=== PATIENT | female | born 1950 | race African-American/Black ===

== ENCOUNTER → 2024-08-25 | Day surgery (SDC) | payer OTHER, MEDICAID ==
[~2024-08-25] MED LIST: AMLO5TAB88 PO; LETR2.5T7 PO; LOSA25TA26 PO
== END | disposition home or self-care (01) ==
LOC: RAD 08:20 → EDUNIT# 09:00
PROVIDERS: ATTEND Surgery Surgical Oncology
DX: D05.12 Intraductal carcinoma in situ of left breast (principal); Z79.899 Other long term (current) drug therapy; Z98.890 Other specified postprocedural states
CPT/HCPCS: 19281; A4648

== ENCOUNTER → 2024-08-26 | Day surgery (SDC) | payer OTHER, MEDICAID ==
[~2024-08-26] VITALS: Ht 154.9 cm; Wt 83.9 kg
[~2024-08-26] MED LIST changes: +ACETAMINOPHEN 1000MG/100ML 100 ML IV ONE; +BUPIVACAINE HCL/PF 0.5% (5MG/ML) 10ML ONE; +CEFAZOLIN SODIUM 1000MG/VIAL ONE; +EPHEDRINE SULFATE 50MG/ML VIAL ONE; +FAMOTIDINE 20MG/2ML VIAL IV ONE; +FENTANYL CITRATE/PF 50MCG/ML 2ML VIAL IV PRN; +FENTANYL CITRATE/PF 50MCG/ML 2ML VIAL ONE; +HYDROMORPHONE HCL/PF 1MG/ML INJ IV PRN; +LIDOCAINE HCL 1% 10 MG/ML 10ML VIAL ONE; +LIDOCAINE HCL/EPINEPHRINE 1%-EPI 1:100,000 20ML VIAL ONE; +ONDANSETRON HCL 4MG/2ML INJ IV PRN; +PROPOFOL 200MG/20ML VIAL IV ONE; +SODIUM BICARBONATE 4.2% 2.5MEQ/5ML VIAL IV ONE; +SUCCINYLCHOLINE CHLORIDE 200MG/10ML IV ONE
[2024-08-26] MEDS: LACTATED RINGERS 1,000 ML IV SCH (08:49)
== END | disposition home or self-care (01) ==
LOC: OR 07:57
PROVIDERS: ATTEND Surgery Surgical Oncology
DX: D05.12 Intraductal carcinoma in situ of left breast (principal); I10 Essential (primary) hypertension; E78.5 Hyperlipidemia, unspecified; K21.9 Gastro-esophageal reflux disease without esophagitis; Z79.899 Other long term (current) drug therapy; Z98.890 Other specified postprocedural states; Z88.1 Allergy status to other antibiotic agents; Z88.5 Allergy status to narcotic agent; Z91.013 Allergy to seafood
CPT/HCPCS: 19301; 88305; 88307; 76098; J2003 ×2; J3490 ×2; J3010; J0131; J0665; J0690; J1308; J2004; J2704; J0330

== ENCOUNTER → 2024-09-14 | Day surgery (SDC) | payer OTHER, MEDICAID ==
[~2024-09-14] VITALS: Ht 154.9 cm; Wt 83.9 kg
[~2024-09-14] MED LIST changes: +BUPIVACAINE HCL/PF 0.25% (2.5MG/ML) 10ML ONE; -EPHEDRINE SULFATE 50MG/ML VIAL ONE; -FENTANYL CITRATE/PF 50MCG/ML 2ML VIAL IV PRN; -LIDOCAINE HCL 1% 10 MG/ML 10ML VIAL ONE; +METOCLOPRAMIDE HCL 10MG/2ML VIAL ONE; +ONDANSETRON HCL 4MG/2ML INJ ONE; -SODIUM BICARBONATE 4.2% 2.5MEQ/5ML VIAL IV ONE; -SUCCINYLCHOLINE CHLORIDE 200MG/10ML IV ONE
[2024-09-14 06:30] LABS: BASOPHILS % 0.6 % (0.0-2.0); EOSINOPHILS % 1.8 % (0.0-5.0); HEMATOCRIT. 40.5 % (36.0-48.0); HEMOGLOBIN. 13.0 g/dL (12.0-16.0); LYMPHOCYTES % 21.6 % (20.0-50.0); MEAN PLATELET VOLUME 8.1 fl (7.4-10.4); MONOCYTES % 6.7 % (2.0-8.0); NEUTROPHILS % 69.3 % (40.0-76.0); PLATELET 269 x1000/uL (130-400); RED BLOOD CELL COUNT 4.94 mill/uL (4.2-5.4); RED CELL DISTRIBUTION WIDTH 14.2 % (11.6-14.6)
[2024-09-14 06:38] LABS: INR 1.0
[2024-09-14 07:01] LABS: CREATININE 0.9 mg/dL (0.6-1.0); UREA NITROGEN BLOOD 9 mg/dL (9-23)
[2024-09-14] MEDS: LACTATED RINGERS 1,000 ML IV SCH (07:16)
== END | disposition home or self-care (01) ==
LOC: OR 05:40
PROVIDERS: ATTEND Surgery Surgical Oncology
DX: D05.12 Intraductal carcinoma in situ of left breast (principal); I10 Essential (primary) hypertension; Z79.899 Other long term (current) drug therapy; Z79.01 Long term (current) use of anticoagulants; Z98.890 Other specified postprocedural states; Z88.1 Allergy status to other antibiotic agents; Z88.5 Allergy status to narcotic agent; Z91.013 Allergy to seafood
CPT/HCPCS: 19301; 80048; 85025; 85610; 85730; 36415; 88307; 93005; J3010; J0131; J3490; J0665; J0690; J1308; J2004; J2765; J2405; J2704; 88305